=== PATIENT | male | born 1960 ===

== ENCOUNTER 2016-08-03 21:14 | Emergency (ER) | payer BC ==
--- NOTE | 2016-08-03 21:43 | UC ---
Skin Complaint HPI - HPI Summary HPI Summary: The patient comes in today for: 1. Fever, nausea, skinned leg/redness, abdominal pain, fatigue: Onset: 2 days ago. Palliative/provocative: Nothing makes his symptoms better or worse. Quality: Abdominal pain--Ache, throbbing. Region: ABdomin Severity: 9/10 Time: Constant. Associated symptoms: Fevers: No temperatures taken at home--but shivering. Vomiting: None, but nauseated. Chest pain: None. Dyspnea: present--"sort of" One foot "is pretty red." Last BM: today--normal. * - History of Current Complaint Chief Complaint: UCGeneralIllness Time Seen by Provider: 08/03/16 21:35 Stated Complaint: VOMITING,FATIGUE(DIABETIC) Hx Obtained From: Patient, Family/Certified First Assistant - Allergy/Home Medications Allergies/Adverse Reactions: Allergies Allergy/AdvReac Type Severity Reaction Status Date / Time No Known Allergies Allergy Verified 08/03/16 21:20 Review of Systems Constitutional: Fever Skin: Rash - He has a red right foot. ENT: Negative Respiratory: Negative Cardiovascular: Negative Gastrointestinal: Abdominal Pain All Other Systems Reviewed And Are Negative: Yes PMH/Surg Hx/FS Hx/Imm Hx Previously Healthy: No Endocrine History: Diabetes Other History Of: Negative For: Anticoagulant Therapy - Surgical History Surgical History: Yes Surgery Procedure, Year, and Place: AMP OF GREAT TOE & 2ND DIGIT LEFT FOOT 2009 [facility]. amp 4th finger on right hand. OSTEOMYLITIS - Family History Known Family History: Positive: Hypertension, Diabetes - Social History Occupation: Employed Full-time Alcohol Use: None Substance Use Type: None Smoking Status (MU): Never Smoked Tobacco - Immunization History Most Recent Influenza Vaccination: unknown Most Recent Tetanus Shot: unknown Most Recent Pneumonia Vaccination: never Physical Exam Triage Information Reviewed: Yes Appearance: Well-Appearing, No Pain Distress Vital Signs: Initial Vital Signs Temp 100.8 F 08/03/16 21:22 Pulse 102 08/03/16 21:22 Resp 16 08/03/16 21:22 BP 154/73 08/03/16 21:22 Pulse Ox 98 08/03/16 21:22 Vital Signs Reviewed: Yes Eyes: Positive: Conjunctiva Clear. Negative: Discharge ENT: Positive: Hearing grossly normal. Negative: Pharyngeal erythema, Nasal congestion, Nasal drainage, TM bulging, TM dull, TM red, Tonsillar swelling, Tonsillar exudate Dental: Negative: Gross Decay/Caries @, Dental Fracture @ Neck: Positive: Supple, Nontender, No Lymphadenopathy. Negative: Nuchal Rigidity Respiratory: Positive: Chest non-tender, Lungs clear, No respiratory distress, No accessory muscle use Cardiovascular: Positive: RRR, No Murmur Abdomen Description: Positive: No Organomegaly, Soft. Negative: Nontender - He has tenderness to palpation of the RUQ, epigastric, and LUQ. However, the RUQ had rebound tenderness and percussion tenderness whereas the epigastric area and LUQ does not., Distended, Guarding Musculoskeletal: Positive: Strength Intact, Edema @, Other: - Right foot. There are two puncture wounds of the right sole of the foot with arcing redness to the heel. There is a subcuticular abscess. The foot is edematous. Neurological: Positive: Alert, Muscle Tone Normal Psychological: Positive: Age Appropriate Behavior, Consolable Skin: Positive: rashes. Negative: breakdown Diagnostics - Laboratory Diagnostic Studies Completed/Ordered: RBS: too high to determine. Urine screen : Specific gravity: 1.010. WBC: (-). Nitriate: (-). Blood: 2+. Glucose: 2+ . Protein: 3+. 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 - Differential Diagnoses - Skin Complaint Differential Diagnoses: Abscess, Cellulitis, Diabetes - Diagnoses Provider Diagnoses: Hyperglycemia. Cellulitis of the right foot. ABdominal pain - Physician Notification/Consults Discussed Patient Care With: Mr. Mack Arias Time Discussed With Above Provider: 22:08 Discharge - Discharge Plan Condition: Stable Disposition: HOME Patient Education Materials: Cellulitis (ED) Additional Instructions: Patient going to [facility] ER.
[2016-08-03 22:09] VITALS: BP 150/64
[2016-08-03] MEDS ORDERED: Acetaminophen TAB* 325 MG PO ONE (22:09)
== END 2016-08-03 22:19 | disposition left against medical advice (07) ==
LOC: UCCORT 21:14
DX: R73.9 Hyperglycemia, unspecified (principal); L03.115 Cellulitis of right lower limb; R10.11 Right upper quadrant pain; R10.13 Epigastric pain; R10.12 Left upper quadrant pain
CPT/HCPCS: 81003; 99212; A9270-GY; G0463